=== PATIENT | male | born 1980 | race Caucasian/White ===

== ENCOUNTER 2024-09-24 00:08 | Emergency (ER) | payer SELFPAY ==
[~2024-09-24 00:08] MED LIST: AMOX500 PO; CLIN150 PO; CLIN300 PO; CRUTCH3 USE; CRUTCH4 USE; ERYT.5TO OS; ERYT333ERA PO; Flomax0.4 MG PO; HYDACE25S PR; HYDACE5 PO; HYDCOR2.5C PR; IBUP200; IBUP800 PO; LIDO2L TOP; NAPR500 PO; OXYACE5T PO; PENVK500 PO; PROACE100 PO; PROM25 PO; Percocet 5-3251 EACH PO; RXCLIN PO; SULI150 PO; TRAM50 PO; Vibramycin100 MG PO
== END 2024-09-24 00:21 | disposition left against medical advice (07) ==
LOC: ER 00:08
DX: S81.832A Puncture wound without foreign body, left lower leg, initial encounter (principal); Z53.29 Procedure and treatment not carried out because of patient's decision for other reasons
CPT/HCPCS: 99281